=== PATIENT | male | born 1985 | race Caucasian/White ===

== ENCOUNTER 2016-11-23 01:49 | Emergency (ER) | payer SELFPAY ==
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
[2016-11-23 02:12] LABS: Hematocrit 47.6 % (42.0-52.0); Hemoglobin 16.5 gm/dL (13.5-18.0); Mean Cell Volume 93.2 fl (78-100); Mean Corpuscular Hemoglobin 32.3 pg (27-31); Mean Corpuscular Hgb Conc 34.7 g/dl (32-36); Neutrophil # 5.3 K/mm3 (1.3-6.0); Neutrophil % 57.5 % (42-75.0); Platelet Count 213 K/mm3 (150-450); Red Blood Count 5.11 M/mm3 (4.7-6.0); Red Cell Distribution Width 12.2 % (11.5-14.0); White Blood Count 9.2 K/mm3 (4.0-10.5)
[2016-11-23 02:32] LABS: Albumin * 4.4 gm/dl (3.4-5.0); Anion Gap 18.2 mmol/L (6.8-13.8); BUN/Creatinine Ratio 7.1 (9.0-21.6); Bilirubin, Total 0.3 mg/dL (0.0-1.1); Ca. Corrected For Albumin 8.5 mg/dL (8.4-10.2); Calcium * 9.1 mg/dL (7.9-10.9); Carbon Dioxide 26.6 mmol/L (24-32.6); Potassium 4.8 mmol/L (3.4-4.6); Total Protein 8.4 gm/dL (6.2-8.2)
[2016-11-23 03:08] LABS: Urine Bilirubin Negative (NEGATIVE); Urine Blood 25 /ul (NEGATIVE); Urine Ketone Negative (NEGATIVE); Urine Nitrite Negative (NEGATIVE); Urine Protein Negative (NEGATIVE); Urine Specific Gravity <=1.005 SP.GR. (1.005-1.030); Urine Urobilinogen Normal (NORMAL)
[2016-11-23 03:16] LABS: Cocaine Ur Negative (NEGATIVE); Urine Appearance Clear; Urine Barbiturate Negative (NEGATIVE); Urine Benzodiazepines Negative (NEGATIVE); Urine Color Pale Yellow; Urine Opiates Negative (NEGATIVE); Urine PCP Negative (NEGATIVE); Urine THC Negative (NEGATIVE)
[2016-11-23 03:17] LABS: Urine Bacteria None Seen; Urine RBC 0-5 /hpf (0-5); Urine WBC 0-5 /hpf (0-5)
[2016-11-23 03:47] VITALS: BP 146/81
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
== END 2016-11-23 04:13 | disposition home or self-care (01) ==
LOC: ER 01:49
DX: S23.3XXA Sprain of ligaments of thoracic spine, initial encounter (principal); V49.88XA Car occupant (driver) (passenger) injured in other specified transport accidents, initial encounter; S13.9XXA Sprain of joints and ligaments of unspecified parts of neck, initial encounter; S33.5XXA Sprain of ligaments of lumbar spine, initial encounter; F10.10 Alcohol abuse, uncomplicated; Y90.9 Presence of alcohol in blood, level not specified
CPT/HCPCS: 36415; 71250; 72125; 72131; 80053; 80307; 81001; 85025; 99283; G0481